=== PATIENT | male | born 1965 | race Caucasian/White ===

== ENCOUNTER 2018-06-27 17:05 | Inpatient (IN) | payer BC, OTHER ==
[~2018-06-27] VITALS: Ht 182.9 cm; Wt 103.7 kg
--- NOTE | 2018-06-27 17:15 | NUR ---
BIB [place]ED [place] FROM [place] WITH HYPERTENSIVE CRISIS. PT PRESENTED THIS MORNING WITH C/O EPIGASTRIC PAIN WITH N/V. PT REQUIRED 16MG OF ZOFRAN AND 50MG OF PHENGRAN TO STOP VOMITING. PT LAST VOMITED ABOUT 3 HOURS AGO. PT WAS 200/100 AND REQUIRED A NICARDAPINE DRIP TO LOWER BP. PT WAS ON 7.5MG TO GET HIS DIASYTLIC IN THE 70'S. PT AAOX4 THOUGH DROWYS. MODERATE AMOUNT OF DISCOMFORT WITH MILD DISTRESS NOTED. BREATHING REGULAR AND UNLABORED. AWAITING EVAL AND ORDERS. WILL CONTINUE TO MONITOR.
[2018-06-27] MEDS ORDERED: LISI-167 PO (17:18)
[2018-06-27] MEDS ORDERED: MORPHINE SULFATE 4 MG/ML, 1ML IVPush PRN (17:30)
[2018-06-27] MEDS ORDERED: METOCLOPRAMIDE 5 MG/ML, 2ML IVPush ONE (17:30)
[2018-06-27] MEDS ORDERED: METOCLOPRAMIDE 5 MG/ML, 2ML ONE (17:37)
--- NOTE | 2018-06-27 17:43 | NUR ---
PT VOMITING. PT MEDICATED PER JUL. 5 RIGHTS VERIFIED PRIOR. 3 P'S ADDRESSED. POC UPDATED.
[2018-06-27 17:54] LABS: BASOPHILS # (AUTO) 0.01 x10^3/uL (0-0.1); BASOPHILS % (AUTO) 0 % (0-1); EOSINOPHILS % (AUTO) 0 % (1-7); LYMPHOCYTES # (AUTO) 1.07 x10^3/uL (1-3.4); LYMPHOCYTES % (AUTO) 8 % (22-44); MD NO; MEAN CORPUSCULAR HEMOGLOBIN 32.9 pg (27.5-34.5); MEAN CORPUSCULAR HGB CONC 34.4 g/dL (33.2-36.2); MEAN CORPUSCULAR VOLUME 95.7 fL (81-97); MEAN PLATELET VOLUME 10.2 fL (7.4-10.4); MONOCYTES # (AUTO) 0.29 x10^3/uL (0.2-0.8); MONOCYTES % (AUTO) 2 % (2-9); NEUTROPHILS # (AUTO) 11.77 x10^3/uL (1.8-6.8); NEUTROPHILS % (AUTO) 90 % (42-75); PLATELET COUNT 263 x10^3/uL (130-400); RED BLOOD COUNT 4.85 x10^6/uL (4.38-5.82); RED CELL DISTRIBUTION WIDTH 13.2 % (9.4-14.8)
[2018-06-27 17:55] LABS: ALBUMIN 4.2 g/dL (3.4-5.0); ANION GAP 6 mmol/L (5-15); CALCIUM 8.5 mg/dL (8.5-10.1); CHLORIDE 105 mmol/L (98-107); CREATININE 0.85 mg/dL (0.7-1.3)
[2018-06-27 17:59] LABS: TROPONIN I < 0.015 ng/mL (0.000-0.045)
--- NOTE | 2018-06-27 18:29 | NUR ---
PT SLEEPING IN GURNEY. EQUAL RISE AND FALL OF CHEST. AWAITING FOR RESULTS. WILL CONTINUE TO MONITOR.
--- NOTE | 2018-06-27 18:58 | NUR ---
BEDSIDE REPORT AND CARE TO AYALA TAYLOR.
--- NOTE | 2018-06-27 18:58 | NUR ---
REPORT RECEIVED FROM CLAUDIA CAI.
--- NOTE | 2018-06-27 19:38 | NUR ---
report given to omaira renner. all questions answered.
[2018-06-27 20:10] VITALS: BP 157/84
[2018-06-27] MEDS ORDERED: LIDODERM 5% PATCH TD PRN (23:00)
[2018-06-27] MEDS ORDERED: morphine SULFATE 10 MG/ML, 1ML IVPush PRN (23:00)
[2018-06-27] MEDS ORDERED: BISACODYL 10 MG SUPP PR PRN (23:00)
[2018-06-27] MEDS ORDERED: PANTOPRAZOLE 80 MG in SODIUM CHLORIDE 0.9% 50 ML IV ONE (23:00)
[2018-06-27] MEDS ORDERED: PROMETHAZINE 25 MG/ML, 1ML IM PRN (23:00)
[2018-06-27] MEDS ORDERED: METOCLOPRAMIDE 5 MG/ML, 2ML IVPush PRN (23:00)
[2018-06-27] MEDS ORDERED: LABETALOL 5MG/ML, 20ML IVPush PRN (23:00)
[2018-06-28] MEDS: NICOTINE 21 MG/24 HR PATCH.TD24 TD SCH (00:08)
[2018-06-28] MEDS: D5%-0.45% NACL 1,000 ML IV SCH ×2 (00:08→10:22)
[2018-06-28] MEDS: PANTOPRAZOLE 80 MG in SODIUM CHLORIDE 0.9% 100 ML IV SCH ×2 (00:35→10:22)
[2018-06-28 01:53] VITALS: BP 146/77
[2018-06-28 05:25] LABS: MICROSCOPIC NOT IND
[2018-06-28 05:27] LABS: CULTURE INDICATED? NO
[2018-06-28 05:55] LABS: ALBUMIN 3.5 g/dL (3.4-5.0); ANION GAP 6 mmol/L (5-15); CHLORIDE 106 mmol/L (98-107)
[2018-06-28 06:01] LABS: ALANINE AMINOTRANSFERASE 29 U/L (12-78); ALKALINE PHOSPHATASE 62 U/L (45-117); BILIRUBIN,TOTAL 0.6 mg/dL (0.2-1.0); CREATININE 0.84 mg/dL (0.7-1.3); TOTAL PROTEIN 6.1 g/dL (6.4-8.2)
[2018-06-28 06:12] LABS: MEAN CORPUSCULAR HEMOGLOBIN 31.8 pg (27.5-34.5); MEAN CORPUSCULAR HGB CONC 33.3 g/dL (33.2-36.2); MEAN CORPUSCULAR VOLUME 95.4 fL (81-97); MEAN PLATELET VOLUME 10.2 fL (7.4-10.4); PLATELET COUNT 238 x10^3/uL (130-400); RED BLOOD COUNT 4.41 x10^6/uL (4.38-5.82); RED CELL DISTRIBUTION WIDTH 13.1 % (9.4-14.8)
[2018-06-28 06:38] LABS: BASOPHILS # (AUTO) 0.04 x10^3/uL (0-0.1); BASOPHILS % (AUTO) 0 % (0-1); EOSINOPHILS # (AUTO) 0.08 x10^3/uL (0-0.4); EOSINOPHILS % (AUTO) 1 % (1-7); LYMPHOCYTES # (AUTO) 2.97 x10^3/uL (1-3.4); LYMPHOCYTES % (AUTO) 17 % (22-44); MD SCAN; MONOCYTES # (AUTO) 1.26 x10^3/uL (0.2-0.8); MONOCYTES % (AUTO) 7 % (2-9); NEUTROPHILS # (AUTO) 12.97 x10^3/uL (1.8-6.8); NEUTROPHILS % (AUTO) 75 % (42-75)
[2018-06-28 06:56] VITALS: BP 118/76
[2018-06-28] MEDS ORDERED: POTASSIUM CHLORIDE 20 MEQ TAB.ER.PRT PO ONE (17:00)
[2018-06-28 17:06] VITALS: BP 153/92
[2018-06-28] MEDS: SODIUM CHLORIDE 0.9% 1,000 ML IV SCH (17:19)
[2018-06-28 17:25] LABS: INTERNATIONAL NORMALIZED RATIO 1.04 (0.93-1.1)
[2018-06-28 18:44] VITALS: BP 144/86
[2018-06-28 19:32] LABS: GASTRIC PH 3 (1-7)
[2018-06-28 19:39] LABS: GASTRIC OCCULT BLD POSITIVE (NEGATIVE)
[2018-06-28] MEDS: PANTOPROZOLE 40MG TABLET PO SCH (20:38)
[2018-06-28] MEDS: INSULIN LISPRO 100 UNITS/ML, PEN SQ-INSULIN SCH (20:41)
[2018-06-29] MEDS: NICOTINE 21 MG/24 HR PATCH.TD24 TD SCH (00:02)
[2018-06-29 00:33] VITALS: BP 148/87
[2018-06-29] MEDS: SODIUM CHLORIDE 0.9% 1,000 ML IV SCH ×2 (02:26→16:58)
[2018-06-29] MEDS: PANTOPROZOLE 40MG TABLET PO SCH ×2 (05:19→21:53)
[2018-06-29 05:28] LABS: CHLORIDE 111 mmol/L (98-107)
[2018-06-29 05:29] LABS: BASOPHILS # (AUTO) 0.07 x10^3/uL (0-0.1); BASOPHILS % (AUTO) 1 % (0-1); EOSINOPHILS # (AUTO) 0.71 x10^3/uL (0-0.4); EOSINOPHILS % (AUTO) 6 % (1-7); LYMPHOCYTES # (AUTO) 3.29 x10^3/uL (1-3.4); LYMPHOCYTES % (AUTO) 27 % (22-44); MD NO; MEAN CORPUSCULAR HGB CONC 33.3 g/dL (33.2-36.2); MEAN PLATELET VOLUME 10.1 fL (7.4-10.4); MONOCYTES # (AUTO) 0.75 x10^3/uL (0.2-0.8); MONOCYTES % (AUTO) 6 % (2-9); NEUTROPHILS # (AUTO) 7.18 x10^3/uL (1.8-6.8); NEUTROPHILS % (AUTO) 60 % (42-75); PLATELET COUNT 203 x10^3/uL (130-400); RED BLOOD COUNT 4.26 x10^6/uL (4.38-5.82); RED CELL DISTRIBUTION WIDTH 13.2 % (9.4-14.8)
[2018-06-29 05:34] LABS: ALANINE AMINOTRANSFERASE 25 U/L (12-78); ALBUMIN 3.4 g/dL (3.4-5.0); ALKALINE PHOSPHATASE 54 U/L (45-117); ANION GAP 3 mmol/L (5-15); BILIRUBIN,TOTAL 0.8 mg/dL (0.2-1.0); CALCIUM 8.1 mg/dL (8.5-10.1); CREATININE 0.75 mg/dL (0.7-1.3); TOTAL PROTEIN 5.8 g/dL (6.4-8.2)
[2018-06-29] MEDS: INSULIN LISPRO 100 UNITS/ML, PEN SQ-INSULIN SCH ×4 (07:19→21:00)
[2018-06-29 08:03] VITALS: BP 138/86
[2018-06-29] MEDS: LISINOPRIL 10 MG TABLET PO SCH (09:36)
[2018-06-29 13:45] VITALS: BP 138/77
[2018-06-29] MEDS ORDERED: LISI-167 PO (17:24)
[2018-06-29] MEDS ORDERED: HYDR12.547 PO (17:24)
[2018-06-29] MEDS ORDERED: METF500T PO (17:24)
[2018-06-29] MEDS ORDERED: PANT40TA5 PO (17:24)
[2018-06-29 19:30] VITALS: BP 157/91
[2018-06-30] VITALS (8 sets, daily range): BP systolic 143–202; BP diastolic 81–113
[2018-06-30] MEDS: SODIUM CHLORIDE 0.9% 1,000 ML IV SCH (04:54)
[2018-06-30] MEDS: NICOTINE 21 MG/24 HR PATCH.TD24 TD SCH (04:54)
[2018-06-30] MEDS: INSULIN LISPRO 100 UNITS/ML, PEN SQ-INSULIN SCH ×3 (07:00→16:00)
[2018-06-30] MEDS ORDERED: hydrALAzine 20 MG/ML, 1ML IV PRN ×2 (09:00→15:00)
[2018-06-30] MEDS ORDERED: HYDROCHLOROTHIAZIDE 12.5 MG CAPSULE PO SCH (09:00)
[2018-06-30] MEDS ORDERED: METOCLOPRAMIDE 5 MG/ML, 2ML IVPush PRN (09:30)
[2018-06-30] MEDS ORDERED: HYDRALAZINE MC SCH (09:30)
[2018-06-30] MEDS: PANTOPROZOLE 40MG TABLET PO SCH (11:12)
[2018-06-30] MEDS: LISINOPRIL 10 MG TABLET PO SCH (11:13)
[2018-06-30] MEDS ORDERED: ONDANSETRON ODT 4 MG PO PRN (11:30)
[2018-06-30] MEDS ORDERED: ONDANSETRON 2MG/ML, 2ML IVPush PRN (11:30)
[2018-06-30] MEDS ORDERED: METO5TAB57 PO (17:00)
== END 2018-06-30 19:27 | disposition home or self-care (01) | DRG 378 ==
LOC: ED 19:17 → EDIP 19:27 → 4WST 19:50
PROVIDERS: ADMIT Internal Medicine; ATTEND Internal Medicine
DX: K92.0 Hematemesis (principal); I67.4 Hypertensive encephalopathy; I16.9 Hypertensive crisis, unspecified; E11.65 Type 2 diabetes mellitus with hyperglycemia; E11.43 Type 2 diabetes mellitus with diabetic autonomic (poly)neuropathy; K31.84 Gastroparesis; N20.0 Calculus of kidney; K76.0 Fatty (change of) liver, not elsewhere classified; F17.200 Nicotine dependence, unspecified, uncomplicated; E87.6 Hypokalemia; R68.81 Early satiety; Z83.3 Family history of diabetes mellitus; Z87.11 Personal history of peptic ulcer disease
CPT/HCPCS: 36415; 78264; 80048; 80053; 81003; 82040; 82271; 82962; 83036; 83735; 84484; 85014; 85018; 85025; 85610; 86677; 93005; 93306; 96374; 99285; G0378; J2550; A9541; C9113; C9898; J2765; J7030